=== PATIENT | female | born 1990 | race Two or more races ===

== ENCOUNTER 2018-08-02 07:04 | Emergency (ER) | payer OTHER ==
--- NOTE | 2018-08-02 08:32 | RADIOLOGY REPORT (SQ) ---
EXAM DESCRIPTION: CHEST 2 VIEWS COMPLETED DATE/TIME: 08/02/2018 8:22 am REASON FOR STUDY: sob COMPARISON: None. TECHNIQUE: Frontal and lateral radiographic views of the chest acquired. NUMBER OF VIEWS: Two view. LIMITATIONS: None. FINDINGS: LUNGS AND PLEURA: No opacities, masses or pneumothorax. No pleural effusion. MEDIASTINUM AND HILAR STRUCTURES: No masses or contour abnormalities. HEART AND VASCULAR STRUCTURES: Heart normal size. No evidence for failure. BONES: No acute findings. HARDWARE: None in the chest. OTHER: No other significant finding. IMPRESSION: NO SIGNIFICANT RADIOGRAPHIC FINDING IN THE CHEST. TECHNICAL DOCUMENTATION: JOB ID: [id number] [email or web address]- All Rights Reserved Reading location - IP/workstation name: [email or web address]
[2018-08-02] MEDS ORDERED: BENZONATATE 100 MG CAPSULE PO ONE (09:17)
--- NOTE | 2018-08-02 09:23 | ER Document Report ---
HPI - HPI Patient complains to provider of: cough/ST Time Seen by Provider: 08/02/18 07:56 Pain Level: 2 Context: Patient is a 27-year-old female presents to the emergency department for generalized, cough, congestion, sore throat for the last 10 days. Patient states she can "feel a rattling in my left chest." Patient is denying any fevers. 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 States recently her patients were diagnosed with RSV, influenza, Strep throat which concerned her which is why she presents to the emergency room. Past medical history: Mitral valve prolapse Medications: None Allergies: IV contrast dye Surgical history: None Last menstrual period 07/02/2018 - EENT EENT: REPORTS: Sore Throat - CARDIOVASCULAR Cardiovascular: REPORTS: Chest pain - LLL discomfort - RESPIRATORY Respiratory: REPORTS: Coughing - REPRODUCTIVE Reproductive: DENIES: : Past Medical History - General Information source: Patient - Social History Smoking Status: Never Smoker Family History: Reviewed & Not Pertinent Patient has suicidal ideation: No Patient has homicidal ideation: No Renal/ Medical History: Denies: Hx Peritoneal Dialysis Vertical Provider Document - CONSTITUTIONAL Agree With Documented VS: Yes Notes: GENERAL: Alert, interacts well. No acute distress. HEAD: Normocephalic, atraumatic. No frontal or maxillary sinus tenderness noted EYES: Pupils equal, round, and reactive to light. Extraocular movements intact. ENT: Oral mucosa moist, tongue midline. Nares patent, swollen turbinates noted bilaterally, TM's intact, nonerythematous, nonbulging bilaterally pharynx minorly erythematous, no palatal petechiae or exudate noted, tonsils +2 bilaterally NECK: Full range of motion. Supple. Trachea midline. No lymphadenopathy appreciated LUNGS: Clear to auscultation bilaterally, no wheezes, rales, or rhonchi. No respiratory distress. HEART: Regular rate and rhythm. No murmur ABDOMEN: Soft, non-tender. Non-distended. Bowel sounds present in all 4 quadrants. EXTREMITIES: Moves all 4 extremities spontaneously. No edema, normal radial and dorsalis pedis pulses bilaterally. No cyanosis. BACK: no cervical, thoracic, lumbar midline tenderness. No saddle anesthesia, normal distal neurovascular exam. NEUROLOGICAL: Alert and oriented x3. Normal speech. cranial nerves II through XII grossly intact. PSYCH: Normal affect, normal mood. SKIN: Warm, dry, normal turgor. No rashes or lesions noted. Course - Re-evaluation Re-evalutation: 08/02/18 09:19 Patient's physical exam is consistent with a viral bronchitis. She has no maxillary or frontal sinus tenderness, no fever, or headache. Patient's chest x-ray reveals no signs of pneumonia, pneumothorax, rib fractures. Patient's rapid strep test is also negative. Patient is afebrile, non-tachycardic, stable for discharge at this time. Discussed symptomatic treatment for viral bronchitis, patient stable for discharge. 08/02/18 09:24 Patient's relative hypertension is believed to be due to the [id number] cough and cold medication she has been taking for the last couple of days. - Vital Signs Vital signs: Temp Pulse Resp BP Pulse Ox 98.8 F 72 18 147/95 H 100 08/02/18 07:10 08/02/18 07:10 08/02/18 07:10 08/02/18 07:10 08/02/18 07:10 Discharge - Discharge Clinical Impression: Bronchitis Upper respiratory infection Qualifiers: URI type: unspecified viral URI Qualified Code(s): J06.9 - Acute upper respiratory infection, unspecified Condition: Stable Disposition: HOME, SELF-CARE Instructions: Bronchitis ([facility]), Sore Throat ([facility]), Upper Respiratory Illness ([facility]), Viral Syndrome ([facility]) Additional Instructions: As we discussed you have been seen and treated in the emergency department for an upper respiratory infection and bronchitis. Unfortunately these infections are typically caused by viruses and do not respond to antibiotics. Please take prescription cough medication as prescribed. Please also take [id number] Tylenol and Motrin for general body aches and fevers. Please make sure you are staying well-hydrated. Please follow-up with your primary care provider in the next 24-48 hours. Please return to the emergency room for any other concerning symptoms. Prescriptions: Benzonatate [Tessalon Perles 100 mg Capsule] 100 mg PO Q8HP PRN #40 capsule PRN Reason: Mometasone Furoate [Nasonex] 1 spray NS Q12 #1 spray.pump Forms: Elevated Blood Pressure, Return to Work
[2018-08-02 09:44] VITALS: BP 125/73
== END 2018-08-02 09:44 | disposition home or self-care (01) ==
LOC: ER 07:04
DX: J40 Bronchitis, not specified as acute or chronic (principal); J06.9 Acute upper respiratory infection, unspecified; R05 Cough; R09.81 Nasal congestion; J02.9 Acute pharyngitis, unspecified
CPT/HCPCS: 71046; 87070; 87880; 99283